=== PATIENT | female | born 1930 | race Caucasian/White ===

== ENCOUNTER 2017-08-21 11:54 | Emergency (ER) | payer OTHER, BC ==
[~2017-08-21] VITALS: Ht 165.1 cm; Wt 65.2 kg
[~2017-08-21 11:54] MED LIST: AMARYL2 MG PO; AMBIEN CR12.5 MG PO; ASPIR-LOW81 M1 PO; Ascorbic Acid,Ester- PO; Dulcolax PR; FIORINAL1 TABLET PO; FLONASE16 G1 BOTH NARES; GLUCOPHAGE XR,500 MG PO; HYDROCODON-ACE1 EAC7 PO; KLOR-CON 1010 ME1 PO; LANOXIN,DIGIT0.25 MG PO; LASIX20 MG PO; LEVOTHROID50 MCG PO; LOMOTIL TABLET1 EACH PO; MELOXICAM15 MG PO; NEXIUM40 MG PO; NORVASC5 MG PO; OXYCONTIN10 MG PO; Ocuvite PO; PRILOSEC20 MG PO; TRAMADOL HCL50 MG PO; Tylenol Regular Stre PO; VANSPAR7.5 MG PO; ZOLPIDEM TARTRA10 MG PO; ZYRTEC10 M2 PO; [UNRECOGNIZED DRUG - OTHER]
[2017-08-21 12:45] LABS: EOSINOPHIL (%) 4.4 % (0-5); EOSINOPHIL COUNT 0.2 K/uL (0-0.3); HEMATOCRIT 41.5 % (36.0-46.0); IMMATURE GRANULOCYTE (%) 0.6 % (0.0-0.7); INSTRUMENT ABS NEUTROPHIL CT 2.5 K/uL; MCH 30.4 PG (29.0-34.0); MCHC 34.5 G/DL (30.0-36.0); MCV 88.1 FL (83-99); MONOCYTE (%) 11.4 % (3-12); MONOCYTE COUNT 0.6 K/uL (0-0.8); NEUTROPHIL (%) 45.7 % (45-76); NEUTROPHIL COUNT 2.5 K/uL (1.8-6.4); PLATELET COUNT 184 K/uL (156-360); RBC DIS.WIDTH-CV 13.1 % (11.8-14.6); RBC DIS.WIDTH-SD 42.4 % (39-53); RED BLOOD COUNT 4.71 M/uL (3.80-5.20); WHITE BLOOD COUNT 5.5 K/uL (4.1-10.2)
[2017-08-21 12:52] LABS: CHLORIDE 110 mEq/L (99-109); POTASSIUM 3.6 mEq/L (3.7-5.4); SODIUM 143 mEq/L (136-147)
[2017-08-21 12:53] LABS: GLUCOSE 144 mg/dL (70-99)
[2017-08-21 12:55] LABS: ANION GAP 13 MEQ/L (2-14)
[2017-08-21 12:57] LABS: GFR ESTIMATE (CALCULATED) > 59 mL/min/
[2017-08-21 12:58] LABS: UREA NITROGEN (BUN) 17 mg/dL (9-23)
[2017-08-21 13:04] LABS: TROP-I INTERPRETATION NEGATIVE; TROPONIN-I < 0.01 ng/mL (0.0-0.30)
[2017-08-21 13:05] LABS: DIGOXIN < 0.3 ng/mL (0.8-2.0)
[2017-08-21 15:40] VITALS: BP 154/74
== END 2017-08-21 15:36 | disposition home or self-care (01) ==
LOC: EME 11:54
PROVIDERS: Emergency Medicine
DX: I48.92 Unspecified atrial flutter (principal); E11.9 Type 2 diabetes mellitus without complications; E78.5 Hyperlipidemia, unspecified; I10 Essential (primary) hypertension; K21.9 Gastro-esophageal reflux disease without esophagitis; F41.9 Anxiety disorder, unspecified; Z85.3 Personal history of malignant neoplasm of breast; Z87.442 Personal history of urinary calculi; Z86.73 Personal history of transient ischemic attack (TIA), and cerebral infarction without residual deficits; Z79.82 Long term (current) use of aspirin; Z87.891 Personal history of nicotine dependence
CPT/HCPCS: 71010; 80048; 80162; 84484; 85025; 93005; 99281; 99285; J0153; J1160; J7040